=== PATIENT | male | born 1955 | race American Indian/Alaskan Native ===

== ENCOUNTER 2024-12-01 17:34 | Emergency (ER) | payer MEDICARE ==
[~2024-12-01 17:34] MED LIST: Iopamidol 370 76% 100 ML VIAL ONE
[2024-12-01 18:06] LABS: #Basophils 0.2 thou/uL (0.0-0.2); #Eosinophils 0.3 thou/uL (0.0-0.7); #Lymphocytes 1.5 thou/uL (1.20-3.40); #Monocytes 0.7 thou/uL (0.11-0.59); #Neutrophils 7.5 thou/uL (1.40-6.50); %Basophils 2.2 % (0.0-1.0); %Eosinophils 3.3 % (0.0-10.0); %Lymphocytes 14.9 % (21.0-51.0); %Monocytes 6.8 % (0.0-10.0); %Neutrophils 72.7 % (42.0-75.0); Hematocrit 46.6 % (42.0-52.0); Hemoglobin 15.1 g/dL (14.0-18.0); Mean Corpuscular Hemoglobin 29.2 pg (27.0-31.0); Mean Corpuscular Volume 90.5 fl (78.0-98.0); Platelet Count 297 10x3/uL (130-400); Red Blood Cell (RBC) Count 5.15 mill/uL (4.70-6.10); White Blood Cell (WBC) Count 10.4 10x3/uL (4.8-10.8)
[2024-12-01 18:17] LABS: INR-International Normal Ratio 0.9; PTT 24.3 sec (22.9-36.1); Prothrombin Time 12.2 sec (12.0-14.7)
[2024-12-01 18:19] LABS: Bicarbonate (HCO3v) 24.4 mmol/L (22.0-28.0); CO2 Tension (PvCO2) 36.9 mmHg (42.0-51.0); Calcium, Ionized 1.18 mmol/L (1.15-1.33); Chloride 104 mmol/L (98-107); Hemoglobin - Calc 14.9 g/dL (14.0-18.0); Potassium 3.5 mmol/L (3.5-5.1); Sodium 141 mmol/L (138-145); T. Carbon Dioxide 25.5 mmol/L (22.0-28.0); vO2 Saturation-calc 76.5 % (60.0-85.0)
[2024-12-01 18:27] LABS: ALT (SGPT) 21 U/L (Less than 45); AST (SGOT) 18 U/L (11-34); Albumin 3.9 g/dL (3.1-4.5); Alkaline Phosphatase 82 U/L (40-110); Anion Gap 19 mmol/L (10-20); BUN (Urea Nitrogen) 7 mg/dL (8.4-25.7); Bilirubin, Total 0.4 mg/dL (0.3-1.2); Calc. Creatinine Clearance 0 mL/min (70-130); Calcium 9.0 mg/dL (7.8-10.44); Carbon Dioxide 22 mmol/L (23-31); Chloride 105 mmol/L (98-107); Globulin 2.5 g/dL (2.4-3.5); Glucose 86 mg/dL (80-115); Potassium 3.8 mmol/L (3.5-5.1); Sodium 142 mmol/L (136-145)
[2024-12-01 18:28] LABS: Troponin I 0.019 ng/mL (< 0.028)
== END 2024-12-01 19:41 | disposition home or self-care (01) ==
LOC: MADERS 17:34
DX: R06.02 Shortness of breath (principal); F41.1 Generalized anxiety disorder; I10 Essential (primary) hypertension; J44.9 Chronic obstructive pulmonary disease, unspecified; F17.210 Nicotine dependence, cigarettes, uncomplicated
CPT/HCPCS: 71275; 80053; 82330; 82803; 83880; 84484; 85025; 85610; 85730; 93005; 94760; Q9967